=== PATIENT | female | born 1955 | race Caucasian/White ===

== ENCOUNTER 2019-02-12 12:23 | Day surgery (SDC) | payer OTHER | END 2019-02-12 15:43 | disposition home or self-care (01) | LOC: GIL 12:23 | DX: K94.23 Gastrostomy malfunction (principal); Y83.3 Surgical operation with formation of external stoma as the cause of abnormal reaction of the patient, or of later complication, without mention of misadventure at the time of the procedure | CPT/HCPCS: 43762 ==